=== PATIENT | female | born 1940 | race Caucasian/White ===

== ENCOUNTER 2024-12-15 12:05 | Emergency (ER) | payer BC, MEDICARE ==
[~2024-12-15] VITALS: Ht 154.9 cm; Wt 49.4 kg
[2024-12-15] MEDS ORDERED: CEPH500C2 PO (13:06)
[2024-12-15 13:42] VITALS: BP 132/61; TEMP 98; O2SAT 88
== END 2024-12-15 13:43 | disposition home or self-care (01) ==
LOC: ER 12:05
DX: S61.412A Laceration without foreign body of left hand, initial encounter (principal); F41.9 Anxiety disorder, unspecified; F32.A Depression, unspecified; Z86.73 Personal history of transient ischemic attack (TIA), and cerebral infarction without residual deficits; Z91.81 History of falling; W18.39XA Other fall on same level, initial encounter; Y93.89 Activity, other specified; Y92.89 Other specified places as the place of occurrence of the external cause; Y99.8 Other external cause status
CPT/HCPCS: A4606; A4663